=== PATIENT | male | born 1990 | race Two or more races ===

== ENCOUNTER 2017-03-30 11:33 | Emergency (ER) | payer SELFPAY ==
[~2017-03-30] VITALS: Ht 172.7 cm; Wt 74.4 kg
[2017-03-30 11:48] VITALS: BP 127/77
== END 2017-03-30 13:11 | disposition home or self-care (01) ==
LOC: ER 11:33
DX: S83.8X1A Sprain of other specified parts of right knee, initial encounter (principal); X50.9XXA Other and unspecified overexertion or strenuous movements or postures, initial encounter; Y93.66 Activity, soccer; Y92.89 Other specified places as the place of occurrence of the external cause; Y99.8 Other external cause status
CPT/HCPCS: 73562